=== PATIENT | male | born 1975 | race Caucasian/White ===

== ENCOUNTER 2019-01-23 16:20 | Emergency (ER) | payer OTHER ==
[~2019-01-23] VITALS: Ht 195.6 cm; Wt 142.9 kg
[~2019-01-23 16:20] MED LIST: ACCUNEB SO1.25 MG/1; BACTRIM DS TAB1 EACH PO; CLEOCIN HCL150 MG PO; CLEOCIN HCL300 MG PO; FLEXERIL PO; IBUPROFEN 800800 M1 PO; MEDROLDOSEPACK PO; NOHOMEMEDICATIONS; NORCO 5-325 TA1 EACH PO; PERCOCET 5-3251 EACH PO; PREDNISONE 10 M10 MG PO
[2019-01-23] MEDS ORDERED: PERCOCET 10-321 EACH PO (16:37)
[2019-01-23 18:50] VITALS: BP 138/83
== END 2019-01-23 18:50 | disposition home or self-care (01) ==
LOC: M.ERS 16:20
DX: M25.512 Pain in left shoulder (principal); F17.200 Nicotine dependence, unspecified, uncomplicated